=== PATIENT | male | born 1980 ===

== ENCOUNTER 2024-08-02 06:58 | Day surgery (SDC) | payer OTHER ==
[2024-08-02] MEDS ORDERED: ENALAPRILAT DIHYDRATE 1.25 MG/ML VIAL IV STA (11:11)
[2024-08-02] MEDS ORDERED: DIPHENHYDRAMINE HCL 50 MG/ML VIAL 1ML IV ONE (11:15)
[2024-08-02] MEDS ORDERED: fentaNYL CITRATE 50 MCG/ML AMPUL IV PUSH ONE (11:15)
[2024-08-02] MEDS ORDERED: MIDAZOLAM HCL 2 MG/2 ML VIAL IV ONE (11:15)
[2024-08-02] MEDS ORDERED: FUROsemide 20 MG/2 ML VIAL IV STA (12:17)
[2024-08-02] MEDS ORDERED: IRBESARTAN 300 MG TABLET PO STA (12:18)
[2024-08-02] MEDS ORDERED: ENALAPRILAT DIHYDRATE 1.25 MG/ML VIAL IV ONE (12:32)
[2024-08-02] MEDS ORDERED: FUROsemide 20 MG/2 ML VIAL ONE (12:32)
[2024-08-02] MEDS ORDERED: LABETALOL HCL 20MG/4ML SYRINGE IV STA (13:49)
== END 2024-08-02 14:40 | disposition home or self-care (01) ==
LOC: AMB-ENDOS 06:58 → CIR.AMB 08:15 → AMB-ENDOS 14:40
PROVIDERS: ATTEND Colon & Rectal Surgery
DX: K62.5 Hemorrhage of anus and rectum (principal); D12.8 Benign neoplasm of rectum; I10 Essential (primary) hypertension